=== PATIENT | female | born 1960 | race Caucasian/White ===

== ENCOUNTER → 2018-03-22 11:31 | Outpatient (CLI) | payer OTHER, SELFPAY ==
[2018-03-22 13:10] LABS: Cholesterol 205 mg/dL (140-199); Glucose 100 mg/dL (70-100); HDL Cholesterol 61 mg/dL (40-60); LDL Cholesterol Calculated 112 mg/dL (<100); Triglycerides 162 mg/dL (35-150)
== END ==
PROVIDERS: Family Provider Family Medicine; PCP Family Medicine; Visit Provider Family Medicine
DX: E66.9 Obesity, unspecified (principal)
CPT/HCPCS: 36415; 80061; 82947

== ENCOUNTER → 2018-12-30 10:42 | Outpatient (CLI) | payer OTHER, SELFPAY ==
--- NOTE | 2018-12-30 | DI.MG.S_ITS ---
BILATERAL DIGITAL SCREENING MAMMOGRAM 3D/2D WITH CAD: 12/30/2018 CLINICAL: Routine screening. Comparison is made to exams dated: 11/16/2007 mammogram, 12/04/2010 mammogram, 07/28/2013 mammogram, and 11/23/2015 mammogram - [facility]. The tissue of both breasts is heterogeneously dense. This may lower the sensitivity of mammography. Current study was also evaluated with a Computer Aided Detection (CAD) system. No significant masses, calcifications, or other findings are seen in either breast. There has been no significant interval change. IMPRESSION: NEGATIVE There is no mammographic evidence of malignancy. A 1 year screening mammogram is recommended. This exam was interpreted at Station ID: [id number]. NOTE: For mammograms, a report in lay terms will be sent to the patient. Approximately 15% of breast malignancies will not be visualized mammographically. In the management of a palpable breast mass, a negative mammogram must not discourage biopsy of a clinically suspicious lesion. Electronically Signed By: Allen agudelo/juventino:12/30/2018 13:46:32 letter sent: Normal Exam ACR BI-RADS Category 1: Negative 3341F
== END ==
PROVIDERS: Family Provider Family Medicine; PCP Family Medicine; Visit Provider Family Medicine
DX: Z12.31 Encounter for screening mammogram for malignant neoplasm of breast (principal)
CPT/HCPCS: 77063; 77067

== ENCOUNTER → 2019-01-27 12:34 | Outpatient (CLI) | payer OTHER, SELFPAY ==
[2019-01-27 13:34] LABS: Add Manual Diff / Slide Review NO; Basophils Absolute Auto 100 /uL (0-100); Basophils Percent Auto 0.7 % (0-2); Eosinophils Absolute Auto 400 /uL (0-450); Eosinophils Percent Auto 4.1 % (2-4); Hematocrit 41.7 % (36-46); Lymphocytes Absolute Auto 3500 /uL (1100-4500); Lymphocytes Percent Auto 38.8 % (25-40); Mean Corpuscular HGB Conc 33.6 % (30-36); Mean Corpuscular Hemoglobin 29.9 PG (26-34); Mean Corpuscular Volume 89.1 fL (80-100); Monocytes Absolute Auto 800 /uL (0-900); Monocytes Percent Auto 9.2 % (3-14); Neutrophils Absolute Auto 4200 /uL (1500-7000); Neutrophils Percent Auto 47.2 % (50-75); Platelet Count 418 X10^3/uL (150-400); Red Blood Cell Count 4.68 X10^6/uL (4.0-5.2); Red Cell Distribution Width 13.4 % (11.6-14.8); White Blood Cell Count 8.9 X10^3/uL (4.5-11.0)
[2019-01-27 13:48] LABS: Alanine Aminotransferase 30 IU/L (9-52); Albumin 4.6 g/dL (3.5-5.0); Albumin Globulin Ratio 1.4 (1.0-2.8); Alkaline Phosphatase 76 U/L (38-126); Aspartate Aminotransferase 29 IU/L (14-36); Bilirubin Total 0.4 mg/dL (0.2-1.3); Blood Urea Nitrogen 14 mg/dL (7-17); Calcium 9.6 mg/dL (8.4-10.2); Carbon Dioxide 26 mmol/L (22-32); Chloride 104 mmol/L (98-107); Cholesterol 209 mg/dL (140-199); Estimated Glomerular Filt Rate > 60.0 mL/min (>60); Globulin 3.2 g/dL (1.7-4.1); Glucose 101 mg/dL (70-100); HDL Cholesterol 67 mg/dL (40-60); HEMOLYSIS < 15 (0-50); LDL Cholesterol Calculated 106 mg/dL (<100); Potassium 4.4 mmol/L (3.4-5.1); Sodium 142 mmol/L (137-145); Total Protein 7.8 g/dL (6.3-8.2); Triglycerides 181 mg/dL (35-150)
[2019-01-27 14:37] LABS: Thyroid Stimulating Hormone 1.67 uIU/mL (0.47-4.68)
== END ==
PROVIDERS: Family Provider Family Medicine; PCP Family Medicine; Visit Provider Family Medicine
DX: E66.9 Obesity, unspecified (principal); E78.5 Hyperlipidemia, unspecified; R73.09 Other abnormal glucose; Z13.0 Encounter for screening for diseases of the blood and blood-forming organs and certain disorders involving the immune mechanism; Z13.29 Encounter for screening for other suspected endocrine disorder; Z79.899 Other long term (current) drug therapy
CPT/HCPCS: 36415; 80053; 80061; 84443; 85025

== ENCOUNTER → 2019-03-14 14:42 | Outpatient (CLI) | payer OTHER, SELFPAY ==
[2019-03-14 14:52] LABS: Bacteria Urine None Seen; RBC Urine None Seen (0-5/HPF); WBC Urine None Seen (0-5/HPF)
[2019-03-14 15:42] LABS: Appearance Urine UA CLEAR; Bilirubin Urine UA NEGATIVE (NEGATIVE); Color Urine UA YELLOW; Glucose Urine UA NEGATIVE (Negative); Ketones Urine UA NEGATIVE (NEGATIVE); Leukocyte Esterase Urine UA NEGATIVE (NEGATIVE); Nitrite Urine UA NEGATIVE (Negative); Occult Blood Urine UA NEGATIVE (Negative); Protein Urine UA NEGATIVE (Negative); Specific Gravity Urine UA 1.015 (1.000-1.035); Urobilinogen Urine UA 0.2 E.U./dL (0.2)
[2019-03-14 16:06] LABS: Culture Indicated Urine Cult Not Indicated; Urine Comments Microscopic Normal
== END ==
PROVIDERS: PCP Family Medicine; Visit Provider Family Medicine
DX: R35.0 Frequency of micturition (principal); R39.15 Urgency of urination
CPT/HCPCS: 81001

== ENCOUNTER → 2020-07-10 | Outpatient (CLI) | payer OTHER, SELFPAY ==
--- NOTE | 2020-07-10 17:26 | DI.MG.S_ITS ---
BILATERAL DIGITAL SCREENING MAMMOGRAM 3D/2D WITH CAD: 07/10/2020 CLINICAL: Routine screening. Comparison is made to exams dated: 12/30/2018 mammogram, 11/23/2015 mammogram, and 07/28/2013 mammogram - [facility]. The tissue of both breasts is heterogeneously dense. This may lower the sensitivity of mammography. Current study was also evaluated with a Computer Aided Detection (CAD) system. No significant masses, calcifications, or other findings are seen in either breast. There has been no significant interval change. IMPRESSION: NEGATIVE There is no mammographic evidence of malignancy. A 1 year screening mammogram is recommended. This exam was interpreted at Station ID: [id number]. NOTE: For mammograms, a report in lay terms will be sent to the patient. Approximately 15% of breast malignancies will not be visualized mammographically. In the management of a palpable breast mass, a negative mammogram must not discourage biopsy of a clinically suspicious lesion. Electronically Signed By: Nadia braxton/juventino:07/17/2020 11:57:49 letter sent: Normal Exam ACR BI-RADS Category 1: Negative [id number]
== END ==
PROVIDERS: PCP Family Medicine; Referring Provider Family Medicine; Visit Provider Family Medicine
DX: Z12.31 Encounter for screening mammogram for malignant neoplasm of breast (principal)
CPT/HCPCS: 77063; 77067

== ENCOUNTER → 2021-02-19 11:57 | Outpatient (CLI) | payer OTHER, SELFPAY | PROVIDERS: PCP Family Medicine; Visit Provider Physician Assistant | DX: N34.3 Urethral syndrome, unspecified (principal) | CPT/HCPCS: 87086 ==

== ENCOUNTER → 2021-08-27 11:44 | Outpatient (CLI) | payer OTHER, SELFPAY ==
[2021-08-27 13:27] LABS: COVID19 -Nasal RAPID Negative (Negative)
== END ==
PROVIDERS: PCP Family Medicine; Referring Provider Nurse Practitioner Family; Visit Provider Nurse Practitioner Family
DX: Z20.822 Contact with and (suspected) exposure to COVID-19 (principal); R05.9 Cough, unspecified
CPT/HCPCS: 87635

== ENCOUNTER 2022-01-02 23:01 | Emergency (ER) | payer OTHER, SELFPAY ==
[2022-01-02 23:06] VITALS: BP 158/95; PULSE 116; RESP 22; TEMP 37.4; O2SAT 97; BMI 30.2
[2022-01-02] MEDS: ONDANSETRON 4 MG/2 ML INJ IV (23:33)
--- NOTE | 2022-01-02 23:34 | DI.CT.S_ITS ---
PROCEDURE: CT KIDNEY URETER BLADDER (KUB) INDICATIONS: Right flank pain, ? stone TECHNIQUE: Axial sections were acquired from the lung bases to the pubic symphysis. Coronal and sagittal reformats were performed. For radiation dose reduction, the following was used: automated exposure control, adjustment of mA and/or kV according to patient size. COMPARISON: None. FINDINGS: Image quality: Excellent. Lung bases: Lung bases are clear. Heart: Heart is normal in size. URINARY: Right Kidney and Ureter: No stones or hydronephrosis. No hydroureter. Left Kidney and Ureter: No stones or hydronephrosis. There is a small left renal cyst. No hydroureter. Bladder: Normal wall thickness. No stones. ABDOMEN: Liver: Noncontrast evaluation of the liver demonstrates a small hypodense focus within the left hepatic lobe which is too small to characterize but likely represents a cyst. Gallbladder: Surgically absent. Biliary ducts: There is mild biliary ductal dilatation likely reflecting sequelae of prior cholecystectomy. Pancreas: Unremarkable. Spleen: Normal in size. Adrenal Glands: No adrenal nodules. Stomach and Bowel: Stomach, small bowel loops, and colon are normal in caliber and wall thickness. The appendix is normal in appearance. There is colonic diverticulosis without acute diverticulitis. Peritoneum: No abnormal intraperitoneal fluid. No free air. Ventral Wall: No hernia. Abdominal Nodes: No retroperitoneal or mesenteric adenopathy by size criteria. Vessels: Aorta and inferior vena cava are normal in size. PELVIS: Pelvic Organs: Unremarkable. Pelvic Nodes: No enlarged lymph nodes. Miscellaneous: No inguinal hernias identified. Bones: Visualized osseous structures demonstrate no suspicious focal lesions. IMPRESSION: 1. No definite acute intra-abdominal abnormality. Specifically, no evidence of nephrolithiasis or obstructive uropathy. 2. No evidence of appendicitis. Dictated by: Allen Gibson M.D. on 01/03/2022 at 0:28 Approved by: Allen Gibson M.D. on 01/03/2022 at 0:32
[2022-01-02 23:38] LABS: Add Manual Diff / Slide Review NO; Basophils Absolute Auto 0 /uL (0-100); Basophils Percent Auto 0.5 % (0-2); Eosinophils Absolute Auto 300 /uL (0-450); Eosinophils Percent Auto 3.7 % (2-4); Hematocrit 44.4 % (36-46); Hemoglobin 14.6 g/dL (12.0-16.0); Lymphocytes Absolute Auto 500 /uL (1100-4500); Lymphocytes Percent Auto 5.2 % (25-40); Mean Corpuscular Hemoglobin 29.1 PG (26-34); Mean Corpuscular Volume 88.2 fL (80-100); Monocytes Absolute Auto 1100 /uL (0-900); Neutrophils Absolute Auto 6900 /uL (1500-7000); Neutrophils Percent Auto 78.6 % (50-75); Platelet Count 365 X10^3/uL (150-400); Red Blood Cell Count 5.03 X10^6/uL (4.0-5.2); Red Cell Distribution Width 13.9 % (11.6-14.8); White Blood Cell Count 8.8 X10^3/uL (4.5-11.0)
[2022-01-02] MEDS: HYDROMORPHONE 0.5 MG INJ IV (23:40)
[2022-01-02] MEDS: SODIUM CHLORIDE 0.9% 1,000 ML 1000 ML IV (23:40)
[2022-01-02] MEDS: KETOROLAC 30 MG/ML VIAL 15 MG IV (23:41)
[2022-01-02 23:50] LABS: Alanine Aminotransferase 17 IU/L (<35); Albumin 4.6 g/dL (3.5-5.0); Albumin Globulin Ratio 1.4 (1.0-2.8); Alkaline Phosphatase 86 U/L (38-126); Aspartate Aminotransferase 26 IU/L (14-36); BUN Creatinine Ratio 15.3 (6-22); Bilirubin Total 0.4 mg/dL (0.2-1.3); Blood Urea Nitrogen 9 mg/dL (7-17); Calcium 9.4 mg/dL (8.4-10.2); Carbon Dioxide 22 mmol/L (22-32); Chloride 103 mmol/L (98-107); Estimated Glomerular Filt Rate > 60 mL/min (>60); Globulin 3.3 g/dL (1.7-4.1); Glucose 103 mg/dL (80-110); HEMOLYSIS < 15 (0-50); Lipase 56 U/L (23-300); Potassium 4.2 mmol/L (3.4-5.1); Sodium 134 mmol/L (137-145); Total Protein 7.9 g/dL (6.3-8.2)
[2022-01-03 00:05] LABS: Bacteria Urine None Seen; Culture Indicated Urine Cult Not Indicated; RBC Urine 0-1/HPF (0-5/HPF); Squamous Epithelial Cell Urine 0-1 /HPF (0-5/HPF); WBC Urine 0-1/HPF (0-5/HPF)
[2022-01-03 00:24] VITALS: BP 130/72; PULSE 95; O2SAT 96
[2022-01-03 00:30] VITALS: PULSE 91; O2SAT 97
[2022-01-03 01:00] VITALS: PULSE 84; O2SAT 96
[2022-01-03 01:30] VITALS: PULSE 80; O2SAT 96
[2022-01-03] MEDS: ONDANSETRON 4 MG/2 ML INJ IV (01:33)
--- NOTE | 2022-01-03 02:00 | ED.GENADULT ---
HPI - General Adult General Chief complaint: Abdominal Pain Stated complaint: thinks she has appendicitis Time Seen by Provider: 01/02/22 23:29 Source: patient Mode of arrival: Ambulatory History of Present Illness HPI narrative: 61-year-old woman with a history of asthma post cholecystectomy and unsure if she still has her appendix presents with 2 days of right upper quadrant/flank pain. She describes the pain as sharp and spasming but does not radiate. She had diarrhea earlier today but has not described any fevers. She has had no vomiting, cough, palpitations, chest pain. She complains of migraine headache. These were problematic for her when she was uounger but she has only had a single one in the last years. she notes no skin rashes but does complain of palmar itching since the recent of her . Related Data Home Medications Medication Instructions Recorded Confirmed VITAMIN D (Vitamin D3) #0 04/01/16 02/19/21 Previous Rx's Medication Instructions Recorded fluticasone 250 mcg-salmeterol 50 1 inhalation INHALATION BID #180 05/18/20 mcg/dose blistr powdr for each inhalation (Advair Diskus) econazole 1 % topical cream See Rx Instructions .ROUTE 06/18/20 .COMPLEX #30 gram cyclobenzaprine 5 mg tablet See Rx Instructions .ROUTE 11/12/20 .COMPLEX #60 tab phenazopyridine 100 mg tablet 100 mg PO TID PRN #6 tab 02/19/21 (Pyridium) albuterol sulfate 90 mcg/actuation See Rx Instructions .ROUTE 08/01/21 aerosol inhaler (Ventolin HFA) .COMPLEX #18 g Allergies Allergy/AdvReac Type Severity Reaction Status Date / Time codeine [CODEINE] Allergy Unknown Verified 02/19/21 12:05 iodine [IODINE] Allergy Unknown Verified 02/19/21 12:05 latex [LATEX] Allergy Unknown Verified 02/19/21 12:05 Penicillins [PENICILLINS] Allergy Unknown Verified 02/19/21 12:05 Review of Systems Review of Systems Narrative: Remainder of complete review of systems is otherwise unremarkable except for that included in the HPI. Patient History Medical History (Updated 01/03/22 @ 02:52 by Ethel Car MD) Abnormal Pap smear of cervix (1977) Asthma Chicken pox Chronic headaches HPV (human papilloma virus) infection (2014) Measles Mumps Nasal fracture (1980) Rubella Surgical History Anesthesia History of nasal surgery (1980) Status post delivery (1980) Status post cholecystectomy (1980) Status post reduction mammoplasty (1999) Status post tubal ligation (1984) Family History Brother Age: 68 Heart disease Hypertension High cholesterol Fibromyalgia Grandmother Heart disease Father No problems noted. Grandfather No problems noted. Grandmother No problems noted. Mother No problems noted. Grandfather Heart disease Social History marital status: household members: spouse pets and animals: Yes education level: other migel/episcopal: buddhist other: hiking,grandkids,dancing seatbelt use: always helmet use: Yes water heater temp set < 120 deg: No working smoke detector in home: Yes fire extinguisher in home: Yes Smoking Status: Current some day smoker alcohol intake: never substance use type: marijuana during the past year weight has: increased > 10 lbs well-balanced diet: daily or most days daily servings fruits/ve or more times/day caffeine: Yes eating out: rarely or never Type(s) of exercise: decline to answer Smoking Status: Current some day smoker tobacco type: cigarettes and vaping alcohol intake frequency: 0-2 drinks per day Substance Use Type: marijuana Exam Initial Vital Signs Initial Vital Signs: Vital Signs Temperature 99.3 F 01/02/22 23:06 Pulse Rate 116 H 01/02/22 23:06 Respiratory Rate 22 01/02/22 23:06 Blood Pressure 158/95 H 01/02/22 23:06 Pulse Oximetry 97 01/02/22 23:06 General: Healthy appearing with moderate abdominal pain. Able to give a complete and coherent history. Well-nourished well-developed HEENT: Moist mucous membranes, normal sclera with reactive pupils, Neck: No JVD, supple Respiratory: Lungs are clear to auscultation, no wheezing no rales no rhonchi. Full and symmetrical air movement Cardiac: Regular rate and rhythm no murmurs no bruits Abdomen: Soft, nontender, good bowel tones, no flank pain on palpation. No skin rashes in the area of concern. No rebound or guarding. Tenderness in the right upper quadrant. Well-healed open cholecystectomy scar Skin: Warm and dry, no rashes Neurologic: Grossly neurologically intact with no obvious asymmetries or abnormalities Extremities: No trauma, well perfused Psych: Cooperative, appropriate insight and affect Course Orders Ordered: ED Orders 01/02/22 23:11 EKG-12 Lead Stat 01/02/22 23:20 Complete Blood Count AUTO DIFF Stat Comprehensive Metabolic Panel Stat Lipase Stat Urine Microscopic Stat 01/02/22 23:34 CT kidney ureter bladder (KUB) Stat Hydromorphone HCl (Hydromorphone 0.5 Mg Inj) 0.5 mg IV Q15MIN PRN PRN Reason: Pain, Last Admin: 01/02/22 23:40 Dose: 0.5 mg Documented by: NATALIO Discontinued Medications Sodium Chloride (Normal Saline 0.9%) 1,000 mls @ 1,000 mls/hr IV BOLUS ONE Stop: 01/03/22 00:32 Last Infusion: 01/03/22 01:39 Dose: 0 mls/hr Documented by: Admin: 01/02/22 23:40 Dose: 1,000 mls/hr Documented by: NATALIO Ketorolac Tromethamine (Ketorolac 30 Mg/Ml Vial) 15 mg IV NOW ONE Stop: 01/02/22 23:34 Last Admin: 01/02/22 23:41 Dose: 15 mg Documented by: NATALIO Ondansetron HCl (Ondansetron 4 Mg/2 Ml Inj) 4 mg IV NOW ONE Stop: 01/02/22 23:29 Last Admin: 01/02/22 23:33 Dose: 4 mg Documented by: NATALIO Ondansetron HCl (Ondansetron 4 Mg/2 Ml Inj) 4 mg IV NOW ONE Stop: 01/02/22 23:34 Last Admin: 01/03/22 01:33 Dose: 4 mg Documented by: CHAITANYA Vital Signs Vital signs: Vital Signs - 8 hr 01/02/22 23:06 01/03/22 00:24 01/03/22 00:30 Temperature 99.3 F Pulse Rate 116 H 95 H 91 H Respiratory Rate 22 Blood Pressure 158/95 H 130/72 Pulse Oximetry 97 96 97 01/03/22 01:00 01/03/22 01:30 Temperature Pulse Rate 84 80 Respiratory Rate Blood Pressure Pulse Oximetry 96 96 Medical Decision Making Lab Data Result diagrams: 01/02/22 23:20 01/02/22 23:20 Labs: Lab Results 01/02/22 01/02/22 01/02/22 Range/Units 23:20 23:20 23:20 WBC 8.8 (4.5-11.0) X10^3/uL RBC 5.03 (4.0-5.2) X10^6/uL Hgb 14.6 (12.0-16.0) g/dL Hct 44.4 (36-46) % MCV 88.2 (80-100) fL MCH 29.1 (26-34) PG MCHC 33.0 (30-36) % RDW 13.9 (11.6-14.8) % Plt Count 365 (150-400) X10^3/uL Neut % (Auto) 78.6 H (50-75) % Lymph % (Auto) 5.2 L (25-40) % [place] % (Auto) 12.0 (3-14) % Eos % (Auto) 3.7 (2-4) % Baso % (Auto) 0.5 (0-2) % Neut # (Auto) 6900 (9892-8874) /uL Lymph # (Auto) 500 L (7532-9878) /uL Pacific # (Auto) 1100 H (0-900) /uL Eos # (Auto) 300 (0-450) /uL Baso # (Auto) 0 (0-100) /uL Sodium 134 L (137-145) mmol/L Potassium 4.2 (3.4-5.1) mmol/L Chloride 103 (98-107) mmol/L Carbon Dioxide 22 (22-32) mmol/L BUN 9 (7-17) mg/dL Creatinine 0.59 (0.52-1.04) mg/dL Estimated GFR > 60 (>60) mL/min BUN/Creatinine Ratio 15.3 (6-22) Glucose 103 (80-110) mg/dL Calcium 9.4 (8.4-10.2) mg/dL Total Bilirubin 0.4 (0.2-1.3) mg/dL AST 26 (14-36) IU/L ALT 17 (<35) IU/L Alkaline Phosphatase 86 (38-126) U/L Total Protein 7.9 (6.3-8.2) g/dL Albumin 4.6 (3.5-5.0) g/dL Globulin 3.3 (1.7-4.1) g/dL Albumin/Globulin Ratio 1.4 (1.0-2.8) Lipase 56 (23-300) U/L Urine RBC 0-1/hpf (0-5/HPF) Urine WBC 0-1/hpf (0-5/HPF) Ur Squamous Epith Cells 0-1 /hpf (0-5/HPF) Urine Bacteria None seen (None) Ur Culture Indicated? Cult not indicated Urine Dip Bedside Urine Glucose Negative Bedside Urine Bilirubin - Negative Bedside Urine Ketone - Negative Urine Specific [place] 1.015 Bedside Urine Occult Blood + Bedside Urine pH 6.5 Bedside Urine Protein - Negative Bedside Urine Urobilinogen +/- 1mg Bedside Urine Nitrite - Negative Bedside Urine Leukocytes - Negative Esterase Point of care testing: Urine Dip Bedside Urine Glucose Negative Bedside Urine Bilirubin - Negative Bedside Urine Ketone - Negative Urine Specific [place] 1.015 Bedside Urine Occult Blood + Bedside Urine pH 6.5 Bedside Urine Protein - Negative Bedside Urine Urobilinogen +/- 1mg Bedside Urine Nitrite - Negative Bedside Urine Leukocytes - Negative Esterase Imaging Data CT scan - abdomen/pelvis: Radiologist's Impression: FINDINGS:? Image quality:? Excellent.? ? Lung bases:? Lung bases are clear. Heart:? Heart is normal in size. ? URINARY: Right Kidney and Ureter: ? No stones or hydronephrosis.? No hydroureter.? ? Left Kidney and Ureter: ? No stones or hydronephrosis.? There is a small left renal cyst. ?No hydroureter. ? Bladder:? Normal wall thickness. No stones. ? ? ? ABDOMEN: Liver:? Noncontrast evaluation of the liver demonstrates a small hypodense focus within the left hepatic lobe which is too small to characterize but likely represents a cyst. Gallbladder:? Surgically absent. Biliary ducts:? There is mild biliary ductal dilatation likely reflecting sequelae of prior cholecystectomy. Pancreas:? Unremarkable.? ? Spleen:? Normal in size.? ? Adrenal Glands:? No adrenal nodules.? ? ? Stomach and Bowel:? Stomach, small bowel loops, and colon are normal in caliber and wall thickness.? The appendix is normal in appearance.? There is colonic diverticulosis without acute diverticulitis. Peritoneum:? No abnormal intraperitoneal fluid.? No free air.? ? Ventral Wall: ? No hernia.? Abdominal Nodes:? No retroperitoneal or mesenteric adenopathy by size criteria.? Vessels:? Aorta and inferior vena cava are normal in size.? ? PELVIS: Pelvic Organs:? Unremarkable.? ? Pelvic Nodes: No enlarged lymph nodes.? Miscellaneous: No inguinal hernias identified. ? ? ? Bones:? Visualized osseous structures demonstrate no suspicious focal lesions. IMPRESSION:? ? 1. No definite acute intra-abdominal abnormality.? Specifically, no evidence of nephrolithiasis or obstructive uropathy. ? 2. No evidence of appendicitis.? ? ? Dictated by: Allen Gibson M.D. on 01/03/2022 at 0:28? ?? MDM Narrative Medical decision making narrative: 61-year-old woman with 48 hours of right upper quadrant to right flank pain described as a sharp spasm me pain not associated with fever. She is developing a migraine at this point. There is no skin rashes but shingles certainly remains a possibility in did review this option with her. She had small amount of blood in her urine but it does not look like she has urinary tract infection. CT scan of the abdomen does not suggest pyelonephritis, hydronephrosis nor kidney stone. No suggestive appendicitis or acute abdominal aortic abnormalities. Labs do not point to any obvious abnormality. No significant liver abnormalities or evidence of pancreatitis. CT scan demonstrates essentially normal liver with a surgically absent gallbladder. Findings reviewed with patient she is re-examined. Her abdomen is soft, certainly not a surgical abdomen. Careful skin exam does not suggest zoster. Independent review of the CT scan does not suggest significant constipation or stool volumes on the right side. At this point with no obvious life-threatening or surgical abnormality I think it is okay to give her pain medication to help her deal with the pain itself. Cautioned her to continue to watch skin and return should the pain worsen or she develops significant fevers or changes to her symptoms. If the pain continues I suggested that she follow-up with her primary care doctor or the general surgery clinic for undiagnosed right-sided abdominal pain. Discharge Plan Departure Patient Disposition: Home Clinical Impression: Migraine Abdominal pain Qualifiers: Abdominal location: right upper quadrant Qualified Code(s): R10.11 - Right upper quadrant pain Instructions: DI for Abdominal Pain-Adult Activity Restrictions/Additional Instructions: Thank you for coming in today I did not find a life-threatening explanation for the right-sided abdominal pain that you been noticing these last 2 days. Specifically, there is no infection, no significant constipation, no kidney problems and no appendicitis. I do not see any skin rashes however sometimes shingles can prevent was severe pain prior to the rash breaking out. Please do look at your skin if you notice a rash follow-up with your primary care doctor. In the meantime I am going to send you home with some pain medication, as there does not appear to be a life-threatening cause today it is safe to cover up the pain for a day or 2. I will encourage you to follow-up with your primary care physician or our general surgery clinic should you continue to have this severe right-sided abdominal pain. If your developing new symptoms, fevers or pain that is intolerable, it would be very appropriate to return to the emergency department Prescriptions: No Action phenazopyridine [Pyridium] 100 mg tablet 100 mg PO TID PRN (Reason: pain) Qty: 6 0RF VITAMIN D (Vitamin D3) Qty: 0 0RF fluticasone propion-salmeterol [Advair Diskus] 250-50 mcg/dose blister with device 1 inhalation INHALATION BID Qty: 180 3RF econazole 1 % cream See Rx Instructions .ROUTE .COMPLEX Qty: 30 1RF Dose Instruction: apply to affected area twice a day Rx Instructions: apply to affected area twice a day cyclobenzaprine 5 mg tablet See Rx Instructions .ROUTE .COMPLEX Qty: 60 1RF Dose Instruction: take 1 tablet by mouth twice a day if needed for pain Rx Instructions: take 1 tablet by mouth twice a day if needed for pain albuterol sulfate [Ventolin HFA] 90 mcg/actuation HFA aerosol inhaler See Rx Instructions .ROUTE .COMPLEX Qty: 18 2RF Dose Instruction: inhale 1 puff by mouth and INTO THE LUNGS four times a day Rx Instructions: inhale 1 puff by mouth and INTO THE LUNGS four times a day Referrals: Fawn Sanders MD [Primary Care Provider] -
[2022-01-03 02:57] VITALS: O2SAT 98
[2022-01-03 02:58] VITALS: BP 146/85; PULSE 92; O2SAT 98
[2022-01-03] MEDS: OXYCODONE/APAP 5/325 PREPACK 1 BOTTLE MISC (03:09)
[2022-01-03] MEDS: OXYCODONE/ACETAMINOPHEN 5/325 TABLET 1 TAB PO (03:09)
[2022-01-03] MEDS: METOCLOPRAMIDE HCL 10 MG TABLET PO (03:17)
== END 2022-01-03 03:20 | disposition home or self-care (01) ==
PROVIDERS: Emergency Provider Emergency Medicine; PCP Family Medicine
DX: G43.909 Migraine, unspecified, not intractable, without status migrainosus (principal); R10.11 Right upper quadrant pain; R19.7 Diarrhea, unspecified
CPT/HCPCS: 36415; 74176; 80053; 81003; 81015; 83690; 85025; 96361; 96374; 96375; 96376; 99284; J1170; J1885; J2405

== ENCOUNTER 2024-03-07 07:29 | Emergency (ER) | payer OTHER, SELFPAY ==
[2024-03-07 07:36] VITALS: BP 109/67; PULSE 89; RESP 24; TEMP 36.4; O2SAT 95; BMI 30.2
[2024-03-07 07:44] VITALS: PULSE 79; O2SAT 94
--- NOTE | 2024-03-07 07:47 | DI.RAD.S_ITS ---
PROCEDURE: XR CHEST 1V INDICATIONS: short of breath TECHNIQUE: One view of the chest was acquired. COMPARISON: None. FINDINGS: Surgical changes and devices: None. Lungs and pleura: Lungs are clear. No pleural effusions or pneumothorax. Mediastinum: Mediastinal contours appear normal. Heart size is normal. Bones and chest wall: No suspicious bony lesions. Overlying soft tissues appear unremarkable. IMPRESSION: No acute cardiopulmonary abnormality is seen. Dictated by: Candelario Quintero M.D. on 03/07/2024 at 8:22 Approved by: Candelario Quintero M.D. on 03/07/2024 at 8:22
[2024-03-07] MEDS: ALBUTEROL/IPRATROPIUM 3 ML AMPUL INH (07:49)
[2024-03-07 08:00] VITALS: PULSE 86; O2SAT 96
--- NOTE | 2024-03-07 08:00 | ED_ITS ---
HPI - SOB/Dyspnea General Chief Complaint: Shortness of Breath/Dyspnea Stated Complaint: Asthma attack Time Seen by Provider: 03/07/24 07:46 Source: patient Mode of arrival: Ambulatory Limitations: no limitations History of Present Illness HPI Narrative: Patient is a 63-year-old female who has a history of asthma is an active smoker presents today with shortness of breath. She reports that she is out of her inhaler she tried to use an last night but they were empty. She says it got really bad this morning. No fever or chills. She feels like her chest is tight and she can not take a deep breath. Related Data Home Medications Medication Instructions Recorded Confirmed VITAMIN D (Vitamin D3) ##0 04/01/16 02/19/21 Previous Rx's Medication Instructions Recorded fluticasone 250 mcg-salmeterol 50 1 inhalation inhalation BID #180 ea 05/18/20 mcg/dose blistr powdr for inhalation (Advair Diskus) albuterol sulfate 90 mcg/actuation See Rx Instructions .Route 10/06/22 aerosol inhaler (Ventolin HFA) .COMPLEX #18 grams albuterol sulfate 90 mcg/actuation 2 puff inhalation Q4-6H PRN 03/07/24 aerosol inhaler shortness of breath or wheezing #8.5 grams fluticasone 250 mcg-salmeterol 50 1 inh inhalation Q12H #60 ea 03/07/24 mcg/dose blistr powdr for inhalation (Advair Diskus) prednisone 20 mg tablet 40 mg (2 x 20 mg) PO DAILY #10 tabs 03/07/24 Allergies Allergy/AdvReac Type Severity Reaction Status Date / Time codeine [CODEINE] Allergy Unknown Verified 03/07/24 07:37 iodine [IODINE] Allergy Unknown Verified 03/07/24 07:37 latex [LATEX] Allergy Unknown Verified 03/07/24 07:37 Penicillins [PENICILLINS] Allergy Unknown Verified 03/07/24 07:37 Patient History Medical History (Updated 03/07/24 @ 09:02 by Shelly Medina DO) Abnormal Pap smear of cervix (1977) Chicken pox Measles Mumps Rubella Chronic headaches Asthma HPV (human papilloma virus) infection (2014) Nasal fracture (1980) Surgical History Anesthesia History of nasal surgery (1980) Status post tubal ligation (1984) Status post reduction mammoplasty (1999) Status post cholecystectomy (1980) Status post delivery (1980) Family History Brother Age: 70 Heart disease Hypertension High cholesterol Fibromyalgia Grandmother Heart disease Father No problems noted. Grandfather No problems noted. Grandmother No problems noted. Mother No problems noted. Grandfather Heart disease Social History marital status: household members: spouse pets and animals: Yes education level: other migel/mormonism: evangelical other: hiking,grandkids,dancing seatbelt use: always helmet use: Yes water heater temp set < 120 deg: No working smoke detector in home: Yes fire extinguisher in home: Yes Smoking Status: Current some day smoker alcohol intake: never substance use type: marijuana during the past year weight has: increased > 10 lbs well-balanced diet: daily or most days daily servings fruits/ve or more times/day caffeine: Yes eating out: rarely or never Type(s) of exercise: decline to answer Smoking Status: Current some day smoker tobacco type: cigarettes and vaping alcohol intake frequency: 0-2 drinks per day Substance Use Type: marijuana Exam Initial Vital Signs Initial Vital Signs: Vital Signs Temperature 97.5 F L 03/07/24 07:36 Pulse Rate 89 03/07/24 07:36 Respiratory Rate 24 03/07/24 07:36 Blood Pressure 109/67 03/07/24 07:36 Pulse Oximetry 95 03/07/24 07:36 Oxygen Delivery Method Room Air 03/07/24 07:36 GENERAL: [id number] respiratory distress 63-year-old female HEENT: Head atraumatic,EOMI, pupils reactive, face symmetric, moist mucous membranes CARDIOVASCULAR: Regular rate and rhythm without murmurs, rubs or gallops. RESPIRATORY: Decreased breath sounds bilaterally tachypneic conversational dyspnea ABDOMEN: Soft, nontender. Normoactive bowel sounds all 4 quadrants. No guarding or rebound. EXTREMITIES: Normal range of motion, no clubbing or edema. Neurovascularly int act NEUROLOGICAL: Alert and oriented x4. SKIN: Warm, dry, no laceration, no petechiae, no rashes or lesions. Course Orders Ordered: Discontinued Medications Albuterol (Albuterol 2.5 Mg/3 Ml Neb (Adult)) 5 mg INH NOW ONE Stop: 03/07/24 08:12 Last Admin: 03/07/24 08:20 Dose: 5 mg Documented By: MARIA D Albuterol/Ipratropium (Albuterol/Ipratropium 3 Ml Ampul) 3 ml INH NOW ONE Stop: 03/07/24 07:43 Last Admin: 03/07/24 07:49 Dose: 3 ml Documented By: Vital Signs Vital signs: Vital Signs - 8 hr 03/07/24 07:36 03/07/24 07:44 Temperature 97.5 F L Pulse Rate 89 79 Respiratory Rate 24 Blood Pressure 109/67 Pulse Oximetry 95 94 Oxygen Delivery Method Room Air MDM - SOB/Dyspnea Imaging Data Chest x-ray: Radiologist's Impression: PROCEDURE: XR CHEST 1V INDICATIONS: short of breath TECHNIQUE: One view of the chest was acquired. COMPARISON: None. FINDINGS: Surgical changes and devices: None. Lungs and pleura: Lungs are clear. No pleural effusions or pneumothorax. Mediastinum: Mediastinal contours appear normal. Heart size is normal. Bones and chest wall: No suspicious bony lesions. Overlying soft tissues appear unremarkable. IMPRESSION: No acute cardiopulmonary abnormality is seen. Dictated by: Candelario Quintero M.D. on 03/07/2024 at 8:22 Approved by: Candelario Quintero M.D. on 03/07/2024 at 8:22 ECG Data Attestation: I personally reviewed and interpreted this ECG as follows: Prior ECG tracings: not available for review Interpretation: Normal sinus rhythm rate 76 IA interval 134 QRS [address] changes MDM Narrative Medical decision making narrative: Patient is 63-year-old female history of asthma active smoker presenting today with increasing shortness of given DuoNeb and albuterol treatment which actually did seem to help her quite a bit. We discussed blood work possible further workup. However after ongoing questioning and discussion she reports that her 2 years ago she is very tearful, she reports that she met some new she is also feeling very sad and missing her . There is definitely a component of anxiety here but she was a little tight. Symptoms are most consistent with asthma exacerbation I did discuss with patient possibility of further cardiac evaluation however she declined at this time she is feeling better. She also just needed to talk about her late . Chest x-ray has been reviewed no acute cardiopulmonary process EKGs overall reassuring At this time patient is given prescriptions her inhalers including Advair along with the GoodRx coupon and prednisone. Discharge Plan Departure Patient Disposition: Home Clinical Impression: Asthma Instructions: DI for Asthma -- Adult, Coping with Grief Activity Restrictions/Additional Instructions: *You have been diagnosed with asthma exacerbation *What to do: At this time you likely had asthma attack. Please take your medications. *Continue to take medications as directed Advair is cheapest at [employer], there is a coupon Albuterol 1-2 puffs every 4 hours if needed for shortness of breath Prednisone 40 mg once daily for 5 days *Follow up with your primary care provider in 2-3 days or call [phone] *Return to ER if you should have increasing shortness of breath chest pain or any new, worsening or concerning symptoms Prescriptions: New prednisone 20 mg tablet 40 mg PO DAILY Qty: 10 0RF fluticasone propion-salmeterol [Advair Diskus] 250-50 mcg/dose blister with device 1 inh inhalation Q12H Qty: 60 0RF albuterol sulfate 90 mcg/actuation HFA aerosol inhaler 2 puff INHALATION Q4-6H PRN (Reason: shortness of breath or wheezing) Qty: 8.5 0RF No Action VITAMIN D (Vitamin D3) Qty: 0 fluticasone propion-salmeterol [Advair Diskus] 250-50 mcg/dose blister with device 1 inhalation INHALATION BID Qty: 180 3RF albuterol sulfate [Ventolin HFA] 90 mcg/actuation HFA aerosol inhaler See Rx Instructions .ROUTE .COMPLEX Qty: 18 0RF Dose Instruction: inhale 1 puff by mouth and INTO THE LUNGS four times a day Rx Instructions: inhale 1 puff by mouth and INTO THE LUNGS four times a day Referrals: Fawn Sanders MD [Primary Care Provider] - Stand Alone Forms: Patient Portal/API
[2024-03-07 08:03] VITALS: BP 114/72; PULSE 76; O2SAT 96
[2024-03-07] MEDS: ALBUTEROL 2.5 MG/3 ML NEB (ADULT) 5 MG INH (08:20)
[2024-03-07 08:30] VITALS: BP 114/74; PULSE 75; O2SAT 97
--- NOTE | 2024-03-07 08:35 | EKG_ITS ---
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
[2024-03-07 09:00] VITALS: BP 160/88; PULSE 89; O2SAT 93
== END 2024-03-07 09:08 | disposition home or self-care (01) ==
PROVIDERS: Emergency Provider Emergency Medicine; PCP Family Medicine
DX: J45.909 Unspecified asthma, uncomplicated (principal); F17.210 Nicotine dependence, cigarettes, uncomplicated
CPT/HCPCS: 71045; 93005; 99283; J7613

== ENCOUNTER 2024-05-06 22:19 | Emergency (ER) | payer BC, SELFPAY ==
[2024-05-06] VITALS (7 sets, daily range): BP systolic 129–139; BP diastolic 64–99; PULSE 77–86; RESP 18–30; O2SAT 88–100; BMI 28.5
--- NOTE | 2024-05-06 22:23 | DI.RAD.S_ITS ---
PROCEDURE: XR CHEST 1V INDICATIONS: dyspnea, hx RAD TECHNIQUE: One view of the chest was acquired. COMPARISON: [facility], CR, XR CHEST 1V, 03/07/2024, 7:55. FINDINGS: Surgical changes and devices: None. Lungs and pleura: No dense consolidation or pleural effusion Mediastinum: Normal heart size Bones and chest wall: Degenerative changes IMPRESSION: No acute radiographic abnormality on this portable single-view study. Dictated by: Eliel Winters M.D. on 05/06/2024 at 23:08 Approved by: Eliel Winters M.D. on 05/06/2024 at 23:08
[2024-05-06] MEDS: ALBUTEROL/IPRATROPIUM 3 ML AMPUL INH (22:33)
[2024-05-06] MEDS: ALBUTEROL/IPRATROPIUM 3 ML AMPUL 6 ML INH (22:33)
--- NOTE | 2024-05-06 22:40 | ED.SOB ---
HPI - SOB/Dyspnea General Chief Complaint: Shortness of Breath/Dyspnea Stated Complaint: Asthma Attack, No Inhaler Time Seen by Provider: 05/06/24 22:21 Source: patient Mode of arrival: Wheelchair Limitations: no limitations History of Present Illness HPI Narrative: 63-year-old female with history of asthma, no prior intubations for respiratory illness, uses Advair and Ventolin inhalers, ran out of Ventolin rescue inhaler about a month ago, feels short of breath last few hours, increased wheezing, denies chest discomfort. No injury or trauma new activities. No fevers or chills. No history of exposure known to persons with similar symptoms, with COVID, with influenza in recent days. No leg pain or swelling symptoms. No blood clot history to legs or lungs. She does not take daily oral prednisone Related Data Home Medications Medication Instructions Recorded Confirmed VITAMIN D (Vitamin D3) ##0 04/01/16 02/19/21 Previous Rx's Medication Instructions Recorded fluticasone 250 mcg-salmeterol 50 1 inhalation inhalation BID #180 ea 05/18/20 mcg/dose blistr powdr for inhalation (Advair Diskus) albuterol sulfate 90 mcg/actuation See Rx Instructions .Route 10/06/22 aerosol inhaler (Ventolin HFA) .COMPLEX #18 grams albuterol sulfate 90 mcg/actuation 2 puff inhalation Q4-6H PRN 03/07/24 aerosol inhaler shortness of breath or wheezing #8.5 grams fluticasone 250 mcg-salmeterol 50 1 inh inhalation Q12H #60 ea 03/07/24 mcg/dose blistr powdr for inhalation (Advair Diskus) prednisone 20 mg tablet 40 mg (2 x 20 mg) PO DAILY #10 tabs 03/07/24 albuterol sulfate 90 mcg/actuation 2 puff inhalation Q6H PRN 05/07/24 aerosol inhaler shortness of breath or wheezing #8.5 grams prednisone 20 mg tablet 40 mg (2 x 20 mg) PO DAILY 5 days 05/07/24 #10 tabs Allergies Allergy/AdvReac Type Severity Reaction Status Date / Time codeine [CODEINE] Allergy Unknown Verified 05/06/24 22:43 iodine [IODINE] Allergy Unknown Verified 05/06/24 22:43 latex [LATEX] Allergy Unknown Verified 09/20/24 22:43 Penicillins [PENICILLINS] Allergy Unknown Verified 05/06/24 22:43 Review of Systems Review of Systems Narrative: see HPI Patient History Medical History (Updated 05/06/24 @ 22:24 by Marco Perkins MD) Abnormal Pap smear of cervix (1977) Chicken pox Measles Mumps Rubella Chronic headaches Asthma HPV (human papilloma virus) infection (2014) Nasal fracture (1980) Surgical History Anesthesia History of nasal surgery (1980) Status post tubal ligation (1984) Status post reduction mammoplasty (1999) Status post cholecystectomy (1980) Status post delivery (1980) Family History Brother Age: 70 Heart disease Hypertension High cholesterol Fibromyalgia Grandmother Heart disease Father No problems noted. Grandfather No problems noted. Grandmother No problems noted. Mother No problems noted. Grandfather Heart disease Social History marital status: household members: spouse pets and animals: Yes education level: other migel/worship: synagogue other: hiking,grandkids,dancing seatbelt use: always helmet use: Yes water heater temp set < 120 deg: No working smoke detector in home: Yes fire extinguisher in home: Yes Smoking Status: Current some day smoker alcohol intake: never substance use type: marijuana during the past year weight has: increased > 10 lbs well-balanced diet: daily or most days daily servings fruits/ve or more times/day caffeine: Yes eating out: rarely or never Type(s) of exercise: decline to answer Smoking Status: Current some day smoker tobacco type: cigarettes and vaping alcohol intake frequency: 0-2 drinks per day Substance Use Type: marijuana Exam Narrative Exam Narrative: GENERAL: Well-developed patient, in mild distress. HEAD: Atraumatic. Normocephalic. EYES: Pupils equal round and reactive. Extraocular motions intact. No scleral icterus. No injection or drainage. ENT: Nose without bleeding, purulent drainage. Throat without erythema, tonsillar hypertrophy or exudate. Airway patent. NECK: Trachea midline. Non tender CARDIOVASCULAR: Regular rate and rhythm without murmurs, gallops, or rubs. RESPIRATORY: Initial mild respiratory distress, speaking just short of full sentences, wheeze throughout bilateral, no grunting or flaring, no peripheral or perioral cyanosis, alert. GASTROINTESTINAL: Abdomen soft, non-tender, nondistended. EXTREMITIES: No edema or joint tenderness. No clubbing upper extremity digits BACK: Nontender without deformity or crepitance. No flank tenderness. NEURO: AOx3. Motor function grossly nonfocal SKIN: No rash or erythema of visible areas Initial Vital Signs Initial Vital Signs: Vital Signs Pulse Rate 86 05/06/24 22:31 Respiratory Rate 18 05/06/24 22:31 Blood Pressure 133/99 H 05/06/24 22:31 Pulse Oximetry 88 L 05/06/24 22:31 Oxygen Delivery Method Room Air 05/06/24 22:31 Course Orders Ordered: ED Orders 05/06/24 22:23 XR chest 1V Stat 05/06/24 22:35 Covid-19 + FLU A/B + RSV - PCR Stat Discontinued Medications Albuterol (Albuterol Hfa Prepack) 1 box MISC DIRECTED ONE Stop: 05/07/24 00:26 Last Admin: 05/07/24 00:46 Dose: 1 box Documented By: CHRISS Albuterol/Ipratropium (Albuterol/Ipratropium 3 Ml Ampul) 3 ml INH NOW ONE Stop: 05/06/24 22:23 Last Admin: 05/06/24 22:33 Dose: 3 ml Documented By: MR Albuterol/Ipratropium (Albuterol/Ipratropium 3 Ml Ampul) 6 ml INH NOW ONE Stop: 05/06/24 22:36 Last Admin: 05/06/24 22:33 Dose: 6 ml Documented By: ROSI Magnesium Sulfate (Magnesium Sulfate) 2 gm in 50 mls @ 150 mls/hr IV NOW ONE Stop: 05/06/24 23:20 Last Infusion: 05/06/24 23:41 Dose: Infused Documented By: CHRISS Co-signed By: ROSI Admin: 05/06/24 23:21 Dose: 150 mls/hr Documented By: CHRISS Co-signed By: ROSI Methylprednisolone (Methylprednisolone 125 Mg/2 Ml Vial) 125 mg IV NOW ONE Stop: 05/06/24 22:23 Last Admin: 05/06/24 22:43 Dose: 125 mg Documented By: CHRISS Vital Signs Vital signs: Vital Signs - 8 hr 05/06/24 22:31 05/06/24 22:45 05/06/24 22:50 Pulse Rate 86 82 Respiratory Rate 18 30 H Blood Pressure 133/99 H 134/64 Pulse Oximetry 88 L 100 Oxygen Delivery Method Room Air Nasal Cannula Oxygen Flow Rate 2 05/06/24 22:50 05/06/24 22:55 05/06/24 23:00 Pulse Rate 82 Respiratory Rate 26 H Blood Pressure 129/72 Pulse Oximetry 99 97 Oxygen Delivery Method Nasal Cannula Oxygen Flow Rate 2 05/06/24 23:00 05/06/24 23:30 05/06/24 23:30 Pulse Rate 79 77 Respiratory Rate 20 26 H Blood Pressure 139/73 Pulse Oximetry 97 98 Oxygen Delivery Method Nasal Cannula Oxygen Flow Rate 1 05/06/24 23:45 05/07/24 00:00 05/07/24 00:00 Pulse Rate 75 Respiratory Rate 20 Blood Pressure 138/73 Pulse Oximetry 96 96 Oxygen Delivery Method Room Air Oxygen Flow Rate 05/07/24 00:30 05/07/24 00:54 05/07/24 00:54 Pulse Rate 84 78 Respiratory Rate 24 Blood Pressure 135/87 Pulse Oximetry 96 Oxygen Delivery Method Room Air Oxygen Flow Rate 05/07/24 01:00 Pulse Rate 79 Respiratory Rate 21 Blood Pressure Pulse Oximetry 96 Oxygen Delivery Method Oxygen Flow Rate MDM - SOB/Dyspnea Lab Data Labs: Lab Results 05/06/24 Range/Units 22:35 SARS-CoV-2 (PCR) Negative (Negative) Influenza A (RT-PCR) Flu a negative (NEGATIVE) Influenza B (RT-PCR) Flu b negative (NEGATIVE) RSV (PCR) Negative (Negative) Imaging Data Chest x-ray: Radiologist's Impression: [address] [address] XRay Report Signed Patient: Trinh Mackenzie MR#: [id number] : 1960 Acct:[id number] Age/Sex: 63 / F Date of Service: 05/06/24 Loc: ED Accession Number: [id number] Procedure: XR chest 1V Ordering Provider: Marco Perkins MD PROCEDURE: XR CHEST 1V INDICATIONS: dyspnea, hx RAD TECHNIQUE: One view of the chest was acquired. COMPARISON: [facility], CR, XR CHEST 1V, 03/07/2024, 7:55. FINDINGS: Surgical changes and devices: None. Lungs and pleura: No dense consolidation or pleural effusion Mediastinum: Normal heart size Bones and chest wall: Degenerative changes IMPRESSION: No acute radiographic abnormality on this portable single-view study. Dictated by: Eliel Winters M.D. on 05/06/2024 at 23:08 Approved by: Eliel Winters M.D. on 05/06/2024 at 23:08 [facility] Narrative Medical decision making narrative: 63-year-old female with history of asthma, ran out of rescue Ventolin inhaler last month, now with a few hours duration of increased shortness of breath, wheeze and hypoxia noted on initial presentation, alert however. No history of respiratory illness related intubation. IV Solu-Medrol, IV magnesium, SVN DuoNeb. Chest x-ray, COVID/influenza swab pending at this time. Patient significantly improved after SVN, 96% on 2 L oxygen, lab tests still pending, chest x-ray still pending. Chest x-ray negative, see radiology report Weaned off of oxygen kind of 97% room air sat, no dyspnea on ambulation. Refill albuterol dispensed, also refill sent electronically to her pharmacy for another supply. Continue Advair inhaled medication. Prescription for steroid pulse next few days oral prednisone also sent to her pharmacy. Patient significantly improved, stable. Discharged home Discharge Plan Departure Patient Disposition: Home Clinical Impression: Shortness of breath, History of asthma Activity Restrictions/Additional Instructions: History of asthma, ran out of rescue albuterol inhaler last month, increased shortness of breath tonight, considerable initial wheeziness, initial low oxygen saturation, breathing treatments given, IV steroids Solu-Medrol given, IV magnesium given. Improvement in symptoms. Chest x-ray without obvious pneumonia. Swabs for COVID and influenza and RSV viruses were negative. Symptoms improved, weaned off of oxygen, able to tolerate symptoms off of oxygen. Prescription sent for further steroid prednisone to take for a few days, sent electronically this prescription to your pharmacy. Also refill of your inhaler dispensed, and another refill of your inhaler sent to your pharmacy. Recheck symptoms this Thursday with your regular doctor. Return to this/nearest emergency department for any change worsening symptoms or any concerns prior Prescriptions: New albuterol sulfate 90 mcg/actuation HFA aerosol inhaler 2 puff inhalation Q6H PRN (Reason: shortness of breath or wheezing) Qty: 8.5 0RF prednisone 20 mg tablet 40 mg PO DAILY 5 Days Qty: 10 0RF No Action VITAMIN D (Vitamin D3) Qty: 0 fluticasone propion-salmeterol [Advair Diskus] 250-50 mcg/dose blister with device 1 inhalation INHALATION BID Qty: 180 3RF albuterol sulfate [Ventolin HFA] 90 mcg/actuation HFA aerosol inhaler See Rx Instructions .ROUTE .COMPLEX Qty: 18 0RF Dose Instruction: inhale 1 puff by mouth and INTO THE LUNGS four times a day Rx Instructions: inhale 1 puff by mouth and INTO THE LUNGS four times a day prednisone 20 mg tablet 40 mg PO DAILY Qty: 10 0RF fluticasone propion-salmeterol [Advair Diskus] 250-50 mcg/dose blister with device 1 inh inhalation Q12H Qty: 60 0RF albuterol sulfate 90 mcg/actuation HFA aerosol inhaler 2 puff INHALATION Q4-6H PRN (Reason: shortness of breath or wheezing) Qty: 8.5 0RF Referrals: Fawn Sanders MD [Primary Care Provider] - Stand Alone Forms: Patient Portal/API
[2024-05-06] MEDS: methylPREDNISolone 125 MG/2 ML VIAL IV (22:43)
[2024-05-06] MEDS: MAGNESIUM SULFATE 2 GM/50 ML PIGGYBACK IV (23:21)
[2024-05-06 23:45] LABS: Influenza A - CEPHEID Flu A NEGATIVE (NEGATIVE); Influenza B - CEPHEID Flu B NEGATIVE (NEGATIVE); Respiratory Syncytial Virus Negative (Negative)
[2024-05-07] VITALS: BP 138/73; PULSE 75; RESP 20; O2SAT 96
[2024-05-07 00:02] LABS: COVID-19 CEPHEID 4-PLEX PCR Negative (Negative)
[2024-05-07 00:30] VITALS: PULSE 84
[2024-05-07] MEDS: ALBUTEROL HFA PREPACK 1 BOX MISC (00:46)
[2024-05-07 00:54] VITALS: BP 135/87; PULSE 78; RESP 24; O2SAT 96
[2024-05-07 01:00] VITALS: PULSE 79; RESP 21; O2SAT 96
== END 2024-05-07 01:14 | disposition home or self-care (01) ==
PROVIDERS: Emergency Provider Emergency Medicine; PCP Family Medicine
DX: R06.02 Shortness of breath (principal); Z11.52 Encounter for screening for COVID-19; Z87.09 Personal history of other diseases of the respiratory system
CPT/HCPCS: 0241U; 36415; 71045; 94640; 96374; 99284; J2919; J3475

== ENCOUNTER → 2024-10-24 12:12 | Outpatient (CLI) | payer MEDICARE, SELFPAY ==
--- NOTE | 2024-10-24 12:14 | DI.RAD.S_ITS ---
PROCEDURE: XR HAND LT 2V INDICATIONS: bilateral hand pain TECHNIQUE: 2 views of the hand(s) acquired. COMPARISON: None. FINDINGS: Bones: No fractures or dislocations. Moderate degenerative changes are noted at the 1st and 2nd carpometacarpal joints with marginal osteophytosis and sclerosis in addition to joint space narrowing. Small cortical fragment noted adjacent to the ulnar styloid process may represent sequelae of remote trauma. Carpal bones are normally aligned. No suspicious bony lesions. Soft tissues: No suspicious soft tissue calcifications. IMPRESSION: Degenerative change of the 1st and 2nd CMC joints without evidence of acute osseous abnormality. Dictated by: Jeremy River M.D. on 10/24/2024 at 18:40 Approved by: Jeremy River M.D. on 10/24/2024 at 18:42
--- NOTE | 2024-10-24 12:14 | DI.RAD.S_ITS ---
PROCEDURE: XR THORACIC SPINE 2V INDICATIONS: Back Pain TECHNIQUE: 2 views of the thoracic spine were acquired. COMPARISON: None. FINDINGS: Bones: No fractures or dislocations. Moderate multilevel anterior osteophytosis and disc height loss throughout the thoracic spine. No suspicious bony lesions. 12 pairs of ribs are noted, and appear intact where visualized. Soft tissues: No paravertebral stripe thickening. Right upper quadrant surgical clips noted. IMPRESSION: Moderate multilevel degenerative change without evidence of acute osseous abnormality. Dictated by: Jeremy River M.D. on 10/25/2024 at 3:07 Approved by: Jeremy River M.D. on 10/25/2024 at 3:08
--- NOTE | 2024-10-24 12:14 | DI.RAD.S_ITS ---
PROCEDURE: XR LUMBAR SPINE 2-3V INDICATIONS: Back Pain TECHNIQUE: 3 views of the lumbar spine were acquired. COMPARISON: None. FINDINGS: Bones: 5 [id number] vertebrae are present. Minimal retrolisthesis of L3 on L4. Moderate to severe T12-L1 and L1-L2 disc height loss with multilevel anterior osteophytosis. Mild levoscoliosis has its apex about the L3-L4 interspace. Chronic appearing anterior wedging deformities of the L2 and L3 vertebral bodies have resulted in less than 25% anterior height loss. There is otherwise normal bony alignment. No vertebral body compression fractures. No suspicious bony lesions. Soft tissues: Overlying bowel gas pattern is normal. No suspicious soft tissue calcifications. IMPRESSION: Multilevel degenerative change of the lumbar spine as outlined above without evidence of acute osseous abnormality. Dictated by: Jeremy River M.D. on 10/25/2024 at 3:06 Approved by: Jeremy River M.D. on 10/25/2024 at 3:07
--- NOTE | 2024-10-24 12:14 | DI.RAD.S_ITS ---
PROCEDURE: XR HAND RT 2V INDICATIONS: bilateral hand pain TECHNIQUE: 2 views of the hand(s) acquired. COMPARISON: None. FINDINGS: Bones: No fractures or dislocations. Moderate degenerative changes are noted at the 1st and 2nd carpometacarpal joints consisting of mild joint space narrowing and marginal osteophytosis and sclerosis. Cortical fragment adjacent to the ulnar styloid process likely represents sequelae of remote trauma. Carpal bones are normally aligned. No suspicious bony lesions. Soft tissues: No suspicious soft tissue calcifications. IMPRESSION: Degenerative change at the 1st and 2nd CMC joints without evidence of acute osseous abnormality. Dictated by: Jeremy River M.D. on 10/24/2024 at 18:42 Approved by: Jeremy River M.D. on 10/24/2024 at 18:43
[2024-10-24 12:59] LABS: Hematocrit 38.3 % (36-46); Hemoglobin 13.2 g/dL (12.0-16.0); Mean Corpuscular HGB Conc 34.4 % (30-36); Mean Corpuscular Volume 87.2 fL (80-100); Platelet Count 730 X10^3/uL (150-400); Red Blood Cell Count 4.39 X10^6/uL (4.0-5.2); Red Cell Distribution Width 13.2 % (11.6-14.8); White Blood Cell Count 8.6 X10^3/uL (4.5-11.0)
[2024-10-24 13:04] LABS: Hemoglobin A1C% w Est Avg Glu 5.4 % (4.0-6.0)
[2024-10-24 13:20] LABS: Alanine Aminotransferase 25 IU/L (<35); Albumin 4.4 g/dL (3.5-5.0); Albumin Globulin Ratio 1.3 (1.0-2.8); Alkaline Phosphatase 87 U/L (38-126); Aspartate Aminotransferase 30 IU/L (14-36); BUN Creatinine Ratio 18.2 (6-22); Bilirubin Total 0.6 mg/dL (0.2-1.3); Blood Urea Nitrogen 12 mg/dL (7-17); C-Reactive Protein Quant 2.3 mg/dL (<1.0); Calcium 9.6 mg/dL (8.4-10.2); Carbon Dioxide 25 mmol/L (22-32); Chloride 103 mmol/L (98-107); Cholesterol 169 mg/dL (140-199); Estimated Glomerular Filt Rate > 60 mL/min (>60); Globulin 3.3 g/dL (1.7-4.1); Glucose 110 mg/dL (80-110); HDL Cholesterol 54 mg/dL (40-60); HEMOLYSIS < 15 (0-50); LDL Cholesterol Calculated 94 mg/dL (<100); Potassium 3.7 mmol/L (3.4-5.1); Sodium 141 mmol/L (137-145); Total Protein 7.7 g/dL (6.3-8.2); Triglycerides 103 mg/dL (35-150)
[2024-10-24 13:38] LABS: Erythrocyte Sedimentation Rate 60 MM/HR (0-20)
== END ==
PROVIDERS: PCP Family Medicine; Referring Provider Family Medicine; Visit Provider Family Medicine
DX: M79.641 Pain in right hand (principal); Z13.1 Encounter for screening for diabetes mellitus; M79.642 Pain in left hand; Z13.220 Encounter for screening for lipoid disorders; Z13.228 Encounter for screening for other metabolic disorders; M25.50 Pain in unspecified joint; M54.9 Dorsalgia, unspecified
CPT/HCPCS: 36415; 72070; 72100; 73120; 80053; 80061; 83036; 85027; 85651; 86140